=== PATIENT | female | born 1975 | race Caucasian/White ===

== ENCOUNTER 2016-12-19 16:39 | Emergency (ER) | payer OTHER ==
[~2016-12-19] VITALS: Ht 162.6 cm; Wt 179.1 kg
[2016-12-19 16:56] VITALS: BP 136/93; PULSE 104; RESP 14; O2SAT 97
--- NOTE | 2016-12-19 17:36 | ED.REPORT ---
HPI-Extremity Problem Lower Date of Service Dec 19, 2016 ED Provider: Cy Chamorro MD A 41 year old female with a history of hypertension presents to the ED complaining of right leg swelling and redness that first appeared 2 weeks ago. She describes the pain as a "tightness" in her leg and it has become increasingly worse since onset. Patient was initially taking Augmentin but experienced no relief. On 12/15, she began taking 450 TID Clindamycin, however, her symptoms continue to persist. Symptom onset initially began as a fever. Patient denies chills, shaking or diaphoresis. She denies any previous similar symptoms. Patient denies any recent injury or recent period of immobilization. Patient is also currently expressing concern about excessive menstrual bleeding. Nursing Notes Stated Complaint: CELLULITIS RIGHT LEG,RED AND SWOLLEN Chief Complaint: General Complaint Nursing Notes Reviewed: Yes Allergies: Coded Allergies: No Known Allergies (Unverified , 12/19/16) Scheduled Amlodipine (Amlodipine) 10 Mg Tablet 10 MG PO DAILY Bupropion ER (Bupropion ER) 150 Mg Tablet.er 150 MG PO QAM Clindamycin (Clindamycin) 150 Mg Capsule 450 MG PO TID Furosemide (Furosemide) 20 Mg Tab 20 MG PO BID Medroxyprogesterone (Medroxyprogesterone) 10 Mg Tablet 10 MG PO DAILY General Time Seen by MD: 17:33 Chief Complaint Other (Right leg swelling) Hx Obtained From: Patient Arrived By: Walk-in Onset Occurred: More than a week ago... (2 weeks) Symptom Duration: Since onset Location: : Leg right Quality: Painful (Tightness) Severity: Current: Mild Severity: Maximum: Mild Associated with: Reports: Fever, Swelling (right leg) Pertinent Negative: Pt denies other symptoms Recent Healthcare: No recent doctor visit, No recent hospitalization Past Medical History Past Medical History Notes: PCP: Dr. Marisa Nielsen [facility] Past Medical History Hypertension Denies: Diabetes mellitus Past Surgical History None reported. Smoking History Unknown if Ever Smoker Social History Other Social History: Good social support Ambulatory Status Independent Review of Systems Constitutional: Reports: Fever, Denies: Chills Skin: Reports Swelling (Right leg swelling and redness), Denies Diaphoresis Neurologic: Denies: Shaking Complete sys rev & neg: except as marked. Female: Reports: Vaginal bleeding - abnl (Abnormally long menstrual cycle ) Physical Exam Initial Vital Signs Vital Signs (First) Date Time Temp Pulse Resp B/P Pulse Ox O2 Delivery O2 Flow Rate FiO2 12/19/16 16:56 36.6 104 14 136/93 97 Room Air Initial VS: Reviewed Head / Eyes: Atraumatic, Normocephalic, PERRL Neck: Supple, Non-tender, Full range of motion Upper Extremities: Vascular intact, Neuro intact, No swelling, No tenderness Skin: Warm, Dry, No cyanosis Neurologic: Alert, Oriented, Nonfocal Psychiatric: Mood/affect normal, Behavior normal, Normal thought content Lower Extremity / Pelvis / MS: Atraumatic, Neurologic intact, Vascular intact Right Leg / Calf: Positive: Erythema present (Advancing erythema above the knee and below the knee to the foot), Tenderness present..., Warmth present ( Below the knee to the foot ) LOWER EXTREMITIES: Advancing erythema above the knee No obvious portal of injury No palpable chords No lymphangitic streaking Ankle / Foot: Atraumatic, Neurologic intact, Vascular intact Right Ankle: Positive: Erythema present, Warmth present Right Foot: Positive: Erythema present, Warmth present General/Constitutional: Awake, Alert, No acute distress Interpretation & Diagnostics Lab Results Interpretation Result Diagram: 12/19/16 1800 12/19/16 1809 Test 12/19/16 18:00 12/19/16 18:09 12/19/16 18:25 White Blood Count 15.9th/mm3 (3.8-10.1) Red Blood Count 3.16mil/mm3 (3.90-5.20) Hemoglobin 10.1g/dL (12.0-15.6) Hematocrit 31.2% (35.0-46.0) Mean Corpuscular Volume 98.7fL (81-100) Mean Corpuscular Hemoglobin 32.0pg (27.0-35.0) Mean Corpuscular Hemoglobin Concent 32.4% (32.0-37.0) Red Cell Distribution Width 12.7% (12.3-15.4) Platelet Count 502bil/L (150-400) Neutrophils (%) (Auto) 72.3% (40-74) Lymphocytes (%) (Auto) 16.7% (14-46) Monocytes (%) (Auto) 5.1% (4-12) Eosinophils (%) (Auto) 4.0% (0-5) Basophils (%) (Auto) 0.4% (0-3) Hold Schilling Top Tube Received (Received) Sodium Level 138mEq/L (134-144) Potassium Level 4.2mEq/L (3.5-5.2) Chloride Level 98mEq/L (97-108) Carbon Dioxide Level 23mmol/L (18-29) Blood Urea Nitrogen 13mg/dL (6-24) Creatinine 0.56mg/dL (0.57-1.00) Estimat Glomerular Filtration Rate 172mL/min (>59) Glucose Level 125mg/dL (60-99) Calcium Level 10.0mg/dL (8.5-10.1) Total Bilirubin 0.2mg/dL (0.0-1.2) Aspartate Amino Transf (AST/SGOT) 17U/L (0-50) Alanine Aminotransferase (ALT/SGPT) 37U/L (0-32) Alkaline Phosphatase 65U/L (25-150) Total Protein 7.6g/dL (6.4-8.4) Albumin 3.6g/dL (3.4-5.0) Hold Urine Received (Received) Point of Care Testing: Preg test neg - urine US Soft Tissue/Musculoskeletal Right Leg US IMPRESSION: No evidence of deep venous thrombosis Dictated by: Ladarius Rosado M.D. on 12/19/2016 at 19:50 Exam Performed by: ED physician Re-Eval/Medical Decision Med Decision/Clinical Course Cellulitic leg in a morbidly obese non-diabetic female. Has an elevated WBC but otherwise looks stable. Discussed admit vs continued home treatment, expanded axb coverage and elevation. Pt opts for outpatinet. Has good followup. Re-Evaluation/Progress : Time of Eval: 20:00 Patient Status: Condition improved Re-Evaluation/Progress Note: Patient reports that the pain is still present but has improved. All of her questions about her diagnosis are addressed. She is offered admission to the hospital and declines. Counseled Regarding: Diagnosis, Lab results, Need for follow-up, When/why to return to ED Discharge & Departure Impression: Primary Impression: Cellulitis Site of cellulitis: extremity Site of cellulitis of extremity: lower extremity Laterality: right Qualified Code: L03.115 - Cellulitis of right lower limb Disposition: Home Discharge Condition All VS Reviewed: Yes Condition: Improved Patient Instructions: Cellulitis (ED) Additional Instructions: Thank you for trusting us with your care this evening. Your emergency department evaluation today included interview, examination, lab work and ultrasound of the right leg. Your results are reassuring that there is no dangerous cause for concern at this time. Your ultrasound did not show any signs of a blood clot at this time. I highly recommend that you do not stand or use the leg for the next week and continue to take Cidomycin as prescribed. Please take the cephalexin BID to completion. Take 1-2 Vicodin every 8 hours as needed for pain. Please do not drink, drive or use acetaminophen while taking this medication. Schedule a follow-up appointment with your primary care physician early next week for a recheck. You should return to the ED immediately if you develop worsening pain, redness, swelling, fever, chills or any other concerning signs or symptoms. Referrals: [facility] Scribe Attestation Portions of this note were transcribed by Ned Valdez. I, Dr. Chamorro personally performed the history, physical exam and medical decision-making; I reviewed and confirmed the accuracy of the information in the transcribed note. Signed by: Constantin Barrios, 12/19/16 2030. Cy Chamorro MD Dec 19, 2016 17:36 NED VALDEZ Dec 19, 2016 17:49
[2016-12-19] MEDS ORDERED: CLIN-77 PO (18:11)
[2016-12-19] MEDS ORDERED: MEDR10TA9 PO (18:11)
[2016-12-19] MEDS ORDERED: AMLO10TA3 PO (18:11)
[2016-12-19] MEDS ORDERED: BUPR150T12 PO (18:11)
[2016-12-19] MEDS ORDERED: FUR20 PO (18:11)
[2016-12-19 18:14] LABS: BASOPHILS % (AUTO) 0.4 % (0-3); MONOCYTES % (AUTO) 5.1 % (4-12); Mean Corpuscular Volume 98.7 fL (81-100); NEUTROPHILS % (AUTO) 72.3 % (40-74); Platelet Count 502 bil/L (150-400)
--- NOTE | 2016-12-19 19:52 | DRSVH ---
PROCEDURE: US VEINOUS LEG DUPLEX UNILATERAL, RIGHT INDICATIONS: Rleg swelling ?DVT TECHNIQUE: Real-time imaging, as well as color and pulse Doppler interrogation, were performed of the lower extr emity deep veins from the inguinal ligament to the popliteal fossa. COMPARISON: None. FINDINGS: The deep veins are normally compressible, and free of intraluminal thrombus. Color and pu lse Doppler demonstrate normal phasic intraluminal flow. There is normal augmentation response to di stal compression maneuver. IMPRESSION: No evidence of deep venous thrombosis Dictated by: Ladarius Rosado M.D. on 12/19/2016 at 19:50 Approved by: Ladarius Rosado M.D. on 12/19/2016 at 19:50
[2016-12-19] MEDS ORDERED: _HYDROcodone/APAP 5-325 mg Tablet PO PRN (20:10)
[2016-12-19] MEDS ORDERED: _Cephalexin 500 mg Capsule PO SCH (21:30)
== END 2016-12-19 21:17 | disposition home or self-care (01) ==
LOC: SED 16:39
DX: L03.115 Cellulitis of right lower limb (principal); I10 Essential (primary) hypertension